=== PATIENT | female | born 1985 | race Caucasian/White ===

== ENCOUNTER 2025-05-13 02:51 | Day surgery (SDC) | payer OTHER, SELFPAY ==
[2025-04-28 12:09] VITALS: BMI 22.5
--- NOTE | 2025-04-28 12:18 | PC.NURSE ---
[facility] has started construction of its new state of the art ER which will open Spring 2026. With this, we anticipate parking may be a challenge for some our surgical patients and families. Parking spaces are limited but are available for all Surgical, obstetrics, and ER patients sharing this lot. If you arrive and find you are having a hard time finding a parking space, please note that we understand the challenges, please drive around the hospital and park near Hospital Entrance 1. When you enter this entrance, you can ask a volunteer to direct or take you back to the surgical waiting area to check in. We appreciate everyone?s understanding of these expected challenges while we build for your future. Report to the Outpatient Waiting Room, entrance under the green pavilion located off [address], at time _0600_ on date _[phone]_. Planned Procedure Time: _0730_.? Time changes happen often and if your time is changed the preop area will call you the afternoon before. - You and your visitor will be asked to self-screen and do not enter if you have any COVID symptoms. Please call surgeon if you need to reschedule. - A mask is optional within the hospital at this time. Patients may have clear liquids (water, carbonated beverages, clear teas, apple juice) until 3 hours prior to surgery with a maximum of 20 ounces. - No food from midnight until time of surgery and no smoking, or chewing tobacco (or any form of nicotine). No chewing gum, candy or mints. Take only the following medications with a SIP of water on the morning of surgery: ___Flonase____ DO NOT STOP ANY OF YOUR OTHER PRESCRIPTION MEDICATIONS PRIOR TO SURGERY EXCEPT THE FOLLOWING Hold all vitamins and supplements for 3 days per anesthesiologist. Medications to discontinue per physician Date to take last deny___[phone]___ Please no make-up, nail rwandan, hairspray, perfume, deodorant, or body powder the day of surgery.? No jewelry (including any body piercings) or valuables the day of surgery, leave them at home.? Please take a shower or bath the night before, or the morning of, surgery with an antibacterial soap.? Wear comfortable, loose fitting clothing.? - Jewelry must be removed prior to entering the operating room.? Rings and piercings that are not removed may be cut off. - The hospital will not accept responsibility for valuables.? - Please leave all valuables, including medications, at home the day of surgery. If you are going home after surgery, a licensed charter coach driver must drive you home.? - NO public transportation without another adult if you receive anesthesia. - We recommend that an adult stay with you for 24 hours following discharge. - We also recommend that you do not drive, make important decision, drink alcoholic beverages, or take any drugs that were not prescribed by your health care provider for at least 24 hours after your discharge time. Follow any additional instructions given to you from your surgeon. Telephone instructions given to __Gloria__and asked if any additional questions and then verbalized understanding. Patient advised to call surgeon office or pre surgery nurse liaison [phone] if any additional questions.
[2025-05-13] VITALS (11 sets, daily range): BP systolic 100–113; BP diastolic 60–79; PULSE 68–84; RESP 12–20; TEMP 36.5–37.1; O2SAT 98–100; BMI 22.8
--- OUTSIDE RECORDS SUMMARY | 2025-05-13 02:54 | XMS_ITS | Clinical Summary ---
Author Organization [facility] [employer] Address [facility] [place] [address] Care Team Providers Care Telegraph Editor Name Role Phone Tegan Engle MD Unavailable Marsha Padron MD Unavailable Pcp, Joanne Boateng - Primary Care Provider U mcailable Source Comments [facility] [employer],non-owned Affiliates and Associated Physician Practices is amultiple site organization consisting of ambulatory clinics and hospital sitesin [place], [place], [place] and [place]. This disclosure is being madepursuant to the Care Everywhere program and may not contain all information available regarding this patient. Last updated 18.[facility] [employer] Allergies Active Allergy Reactions Criticality Noted Date Comments Diphenhydramine Rash,Urticaria Medium 09/01/2023 Medications * Be aware that medications may not be up to date on this document. Alwaysverify current medications with the patient. 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 Multiple benign nevi 10/20/2018 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 Encounters Date Type Department Care Team Description 02/23/2025 Results Follow-Up [facility] - [facility] [address] [place] [address], [address] [place] [phone] Tegan Engle MD 02/17/2025 9:15 AM CDT Office Visit [facility] - CAPTAIN ASSISTANT [address] [place] [address], [address] [place] [address] Tegan Engle MD Well woman exam with routine gynecological exam (Primary Dx) 02/17/2025 Travel from Last 3 Months Immunizations Immunization Administration Dates Next Due Covid Moderna primary monova lent 12+ yr 0.5mL 05/25/2021,11/05/2020,10/08/2020 INFLUENZA VACCINE 03/14/2021 Family History Medical History Relation Name Comments Cancer - Colon Father Hypertension Mother Leukemia Paternal Grandfather Relation Name Status Comments Brother Alive Father Alive Mother Alive Paternal Grandfather Social History Tobacco Use Types Packs/Day Years Used Date Smoking Tobacco: Never Smokeless Tobacco: Never Tobacco Cessation:Counseling Given: No Alcohol Use Standard Drinks/Week Comments Yes 0 (1 standard drink = 0.6 oz pur e alcohol) social PHQ-2 Answer Date Recorded Patient Health Questionnaire-2 Score 0 02/12/2025 Comments No Sex and Gender Information Value Date Recorded Sex Assigned at Not on file Legal Sex Female 1:35 PM CDT Gender Identity Not on file Sexual Orientation Not on file Last Filed Vital Signs Vital Sign Reading Time Taken Comments Blood Pressure 104/64 02/17/2025 9:30 AM CDT Pulse 70 03/12/2022 1:46 PM CDT Temperature 36.9 C (98.5 F) 03/12/2022 1:46 PM CDT Respiratory Rate 18 03/12/2022 1:46 PM CDT Oxygen Saturation 98% 03/12/2022 1:46 PM CDT Inhaled Oxygen Concentration - - Weight 53.3 kg (117 lb 9.6 oz) 02/17/2025 9:30 A M CDT Height 152.4 cm (5') 02/17/2025 9:30 AM CDT Body Mass Index 22.97 02/17/2025 9:30 AM CDT Plan of Treatment Health Maintenance Due Date Last Done Comments HIV SCREENING 2001 HEPATITIS C SCREENING 09/11/2004 DTAP/TDAP/TD VACCINES (1 - Tdap) 2005 HEPATITIS B VACCINE (1 of 3 - 19+ 3-dose series) 2005 HPV VACCINE (1 - 3-dose SCDM series) 2013 COVID-19 VACCINE ( season) 2025 05/25/2021, 11/05/2020, 10/08/2020 INFLUENZA VACCINE (#1) 2025 03/14/2021 PAP with HPV 02/17/2030 02/17/2025, 02/2023, 05/04/2020, Additional history exists ZOSTER VACCINE (1 of 2) 2036 DEPRESSION SCREENING Completed 02/17/2025, 07/25/2023, 07/08/2022, Additional history exists HIB VACCINE Aged Out No longer eligi ble based on patient's age to complete this topic MENINGOCOCCAL (Group B) VACCINE SHARED DECISION-MAKING Aged Out No longer eligible based on patient's age to complete this topic MENINGOCOCCAL GROUPS A/C/Y/W VACCINE Aged Out No longer eligible based on patient's age to complete this topic PNEUMOCOCCAL VACCINE Aged Out No long er eligible based on patient's age to complete this topic Procedures Procedure Name Priority Date/Time Associated Diagnosis Comments PAP IG LB +HPV APTIMA REFLEX 16,18/45 FOR HR POS Routine 02/17/2025 9:39 AM CDT Well woman exam with routine gynecological exam from Last 3 Months Results * PAP IG LB +HPV APTIMA REFLEX 16,18/45 FOR HR POS (02/17/2025 9:39 AM CDT) Diagnosis Comment [facility] ACCOUNT BILL Comment:NEGATIVE FOR INTRAEP ITHELIAL LESION OR MALIGNANCY. Specimen Adequacy Comment [facility] ACCOUNT BILL Comment: Satisfactory for evaluation. Endocervical and/or squamous metaplastic cells (endocervical component) are present. Clinician Provided ICD10 Comment [facility] ACCOUNT BILL Comment:Z01.419 Performed by Comment [facility] ACCOUNT BILL Comment:Seda cortez, Assistant To The Vice President (ASCP) Comment . [facility] ACCOUNT BILL Note Comment [facility] ACCOUNT BILL Comment: The Pap smear is a screening test designed to aid in the detection of premalignant and malignant conditions of the uterine cervix. It is not a diagnostic procedure and should not be used as the sole means of detecting cervical cancer. Both false-positive and false-negative reports do occur. IGLBP CPT Code Automation Comment [facility] ACCOUNT BILL Comment: This liquid based ThinPrep(R) pap test was screened with the use of an image guided system. Human papillomavirus Aptima Negative Negative [facility] ACCOUNT BILL Comment: This nucleic acid amplification test detects fourteen high-risk HPV types (16,18,31,33,35,39,45,51,52,56,58,59,66,68) without differentiation. ENTIRE ENDOCERVIX / Unknown 02/17/2025 9:39 AM CDT 02/17/2025 Comment:Endocrvx Release to p Narrative [facility] ACCOUNT BILL - 02/21/2025 11:10 AM CDT Performed at: 01 - [facility] [id number] Production Cell Leader: Hailey Acevedo MD, Phone: [phone] Performed at: 02 - [facility] [id number] Production Cell Leader: Hailey Acevedo MD, Phone: [phone] Specimen Comment: [id number] Specimen Comment: No. of containers..01 ThinPrep Vial us Tegan Engle MD LAB - PATHOLOGY/CYTOLOGY ORDERAB LES Final Result [facility] ACCOUNT BILL [address] [place] [address] from Last 3 Months Insurance [facility] Care Teams Telegraph Editor Relationship Specialty Start Date End Date PcpJoanne PCP - General 07/29/23 Tegan Engle MD Obstetrics and Gynecology 12/11/21 Marsha Padron MD [address] [place] [address] Dermatology 12/11/21
--- OUTSIDE RECORDS SUMMARY | 2025-05-13 02:54 | XMS_ITS | Data Portability ---
Author Organization [facility]_ Address [address] [place] [address] Assessment No assessment recorded. Plan of Treatment Reminders Order Date Submit Date Provider Last Modified By Organization Details Last Modified Time Details Appointments None recorded. Lab urinalysi s, complete 2018 [facility], [address], [place], [address], 9 10:23:03 Referral None recorded. Procedures None recorded. Surgeries None recorded. Imaging None recorded. Medication Orders Saline Mist 0.65 % nasal spray aerosol 2018 019 INTERFACE [employer] #[id number], [address] [place], [place], [id number], 9 12:17:17 cetirizin e 10 mg tablet 2018 019 [facility]FACE [id number], [address] [place], [place], [id number], 9 12:17:31 Mucinex 600 mg tablet, extended release 2018 019 INTERFACE [employer] #[id number], [address] [place], [id number], 9 12:17:18 Augmentin 875 mg-125 mg tablet 2018 019 INTERFACE [facility] #[id number], [address] [place], [place], [id number], 9 12:17:19 Macrobid 100 mg capsule 2018 [facility] , [address], [facility] [address] [facility] [address], [place], [place], [id number], 9 11:57:23 Diflucan 150 mg tablet 2018 019 [facility] , [address], [facility] [address], [place], [place], [id number], 9 11:57:14 Patient TargetsNo targets recorded. Patient Instructions Encounter Date Encounter Id Patient Instructions Last Modified By Organization Details Last Modified Time 09/09/2018 [id number] Discussed taking Macrobif ro 3 days only and evaluate symptoms. To see MANAGER ONCOLOGY for evaluationof vaginal discharge and possible endometriosis Not available 09/09/2018 18:49:08 09/25/2018 [id number] Acute Sinusitis: Care Instructions Not available 09/25/2018 12:17:07 saline nasal washes: care instructions Not available 09/25/2018 12:17:07 sore throat: car e instructions Not available 09/25/2018 12:17:07 Reason for Referral None Reported. Results Created Date Observation Date Name Description Value Unit Range Abnormal Flag Note LastModifiedBy Organization Detail LastModifiedTime 09/10/1909/10/2018 urina lysis , compl ete color YELW yellow normal Not Available [facility] [address], [place], [address], 09/10/2018 10:10:37 09/10/1909/10/2018 urina lysis , compl ete appearance SLCLD clear normal Not Available [facility] [address], [place], [address], 09/10/2018 10:10:37 09/10/1909/10/2018 urina lysis , compl ete sp gravity 1.025 1.005- 1.030 normal Not Available [facility] [address], [place], [address], 09/10/2018 10:10:37 09/10/19 19 09/10/2018 urina lysis , compl ete pH 6.0 5.2-7. 6 normal Not Available [facility] [address] , [place], [address], 09/10/2018 10:10:37 09/10/1909/10/2018 urina lysis , compl ete protein NEG neg normal Not Available [facility] [address] , [place], [address], 09/10/2018 10:10:37 09/10/1909/10/2018 urina lysis , compl ete glucose NEG neg normal Not Available [facility] [address] , [place], [address], 09/10/2018 10:10:37 09/10/1909/10/2018 urina lysis , compl ete ketone NEG neg normal Not Available [facility] [address] , [place], [address], 09/10/2018 10:10:37 09/10/1909/10/2018 urina lysis , compl ete bilirub NEG neg normal Not Available [facility] [address] , [place], [address], 09/10/2018 10:10:37 09/10/1909/10/2018 urina lysis , compl ete blood TRACE neg abnormal Not Available [facility] [address] , [place], [address], 09/10/2018 10:10:37 09/10/1909/10/2018 urina lysis , compl ete urobil 0.2 nl normal Not Available [facility] [address] , [place], [address], 09/10/2018 10:10:37 09/10/1909/10/2018 urina lysis , compl ete nitrite NEG neg normal Not Available [facility] [address] , [place], [address], 09/10/2018 10:10:37 09/10/1909/10/2018 urina lysis , compl ete leuk NEG neg normal Not Available [facility] [address] , [place], [address], 09/10/2018 10:10:37 09/10/1909/10/2018 urina lysis , compl ete WBC 0-5 0-5 normal Not Available [facility] [address] , [place], [address], 09/10/2018 10:10:37 09/10/1909/10/2018 urina lysis , compl ete RBC NEG 0-5 normal Not Available [facility] [address] , [place], [address], 09/10/2018 10:10:37 09/10/1909/10/2018 urina lysis , compl ete epith 0-5 0-10 normal Not Available [facility] [address] , [place], [address], 09/10/2018 10:10:37 09/10/1909/10/2018 urina lysis , compl ete bacteria RARE none normal Not Available [facility] [address] , [place], [address], 09/10/2018 10:10:37 09/10/1909/10/2018 urina lysis , compl ete color Yellow normal Not Available [facility] [address] , [place], [address], 09/10/2018 10:10:37 09/10/1909/10/2018 urina lysis , compl ete appearance Slight ly C normal Not Available [facility] [address] , [place], [address], 09/10/2018 10:10:37 Result Notes None recorded. Problems No Known Problems Procedures Surgical History Date Name Laterality Status Provider Name and Address Organization Details Recorded Time 9 Cerumen Removal completed Damir Bolanos [address] [facility] [address], [place], [address], [facility] 09/25/2018 20:34:44 Imaging Results None recorded. Procedure Notes None recorded. Medical Equipment None Reported. Allergies Allergen ID Allergen Name Allergen Category Reaction Reaction Severity Criticality Documentation Date Start Date Code Code System Note Provider Name and Address Organization Details Recorded Time 7765 Benadryl medicatio n Not available Not available Not available 09/09/2018 93288 7 RxNorm Ramya Li [facility] 9 17:57:27 Medications Name Sig Start Date Stop Date Status Note LastModified by Organization Details LastModified Time glycopyrrola te 1 mg tablet 09/25 completed Not Available Not Available Not Available Augmentin 875 mg-125 mg tablet Take 1 tablet every 12 hours by oral route for 10 days. 2018 active Not Available Not Available Not Avai lable Saline Mist 0.65 % nasal spray aerosol Take 2 sprays 3 times a day by nasal route as needed for 10 days. 2018 active Not Available Not Available Not Avai lable cetirizine 10 mg tablet Take 1 tablet every day by oral route. 2018 active Not Available Not Available Not Avai lable Diflucan 150 mg tablet Take 1 tablet every day by oral route for 1 day. 09/25 completed Not Available Not Available Not Available Macrobid 100 mg capsule Take 1 capsule every 12 hours by oral route for 10 days. 09/25 completed Not Available Not Available Not Available glycopyrrola te 2 mg tablet 09/25 completed Not Available Not Available Not Available diazepam 5 mg tablet active Not Available Not Available No t Available Mucinex 600 mg tablet, extended release Take 1 tablet twice a day by oral route for 10 days. 2018 active Not Available Not Available Not Avai lable MoviPrep 100 gram-7.5 gram-2.691 gram oral powder packet 09/25 completed Not Available Not Available Not Available Altavera (28) 0.15 mg-0.03 mg tablet active Not Available Not Available Not Available Vitals Date Recorded Heart rate Respiratory rate Body temperature Body weight Oxygen saturation Oxygen saturation in Arterial blood by Pulse oximetry Systolic And Diastolic Provider Name and Address Organization Details Last Updated DateTime 9 79 /min 18 /min 98.3 [degF] 04898.2 3 g 99 % 99 % 116/64 mm[Hg] Ramya [facility] 9 17:57:18 Date Recorded Body weight Body height Body mass index (BMI) Body temperature Respiratory rate Heart rate Oxygen saturation Oxygen saturation in Arterial blood by Pulse oximetry Systolic And Diastolic Provider Name and Address Organization Details Last Updated DateTime 9 25307.5 6 g 152.4 cm 22.5 kg/m2 97.8 [degF] 18 /min 99 /min 98 % 98 % 114/70 mm[Hg] Kay Edouard [facility] 9 12:02:35 Social History Question Answer Notes LastModified by [employer] Details LastModified Time Tobacco Smoking Status Never Smoker Ramay stratton [facility] 09/09/2018 18:00:00 Which Illicit Or Recreational Drugs Have You Used? Never Information not available 09/09/2018 What Was The Date Of Your Most Recent Tobacco Screening? 09/25/2018 Information not available 01/20/2019 Sex: Unknown Functional Status Question Answer Note LastModified by [employer] Details LastModified Time What is your level of alcohol consumption? Occasional Information not available 09/09/2018 Mental Status None recorded. Family History Relationship Description Onset Age of this Age Resolved Age Notes LastModified by Organization Details LastModified Time Maternal Grandfather Diabetes mellitus [email or web address] Not available 2018 17:59:45 Medical History Condition Response Coronary Artery Disease N Other N Gout N Kidney Stones N Blood Diseases N Hyperthyroidism N Breast Cancer N Blood Transfusion N Depression N Hypothyroidism N Lung Disease N COPD N Developmental or Behavioral Disorders N Defects or Inherited Disease N Breast Problem N Difficulty Swallowing N Anesthesia Complications N Anxiety Disorder N Meniere's disease N Muscle, Joint, or Bone Problems N Obesity N Vision or Eye Problems N Arthritis N Infertility N Polyps N Mental Disorder N Cancer N Stroke N Varicosities N Endometriosis N Bladder or Kidney Problems N High Cholesterol N Liver Disease N Fibromyalgia N Headaches N Kidney Disease N Allergies/Hayfever N Heart Problems N Ear or Hearing Problems N Hospitalizations N Thyroid Problems N GI Problems N ADD/ADHD N Skin Problems N Eating Disorder N Anemia N MRSA exposure N Constipation N Mental Illness N Ovarian Cancer N Diabetes N Bedwetting N Seizures/Epilepsy N Tuberculosis N AIDS/HIV N Congestive Heart Failure (CHF) N Eczema N Diverticulitis N Abuse/Domestic Violence N Asthma N Reflux/GERD N Hepatitis N Heart Disease N Pulmonary Embolism N Pre-Eclampsia N Hypertension N Chronic Ear Infections N Osteoporosis N Chicken Pox N Autism Spectrum Disorder (ASD) N Thrombophilias N Gynecological HistoryNo gynecological history recorded. Obstetrics History GPAL:G 0 P 0 0 0 0 Past Encounters Encounter ID Performer Location Encounter Start Date Encounter Closed Date Diagnosis/Indication Diagnosis SNOMED-CT Code Diagnosis ICD10 Code Diagnosis IMO Codes Diagnosis Note [id number] Damir Bolanos [facility] [address] [place] [address] 09/09/2018 17:31:32 12/05/2018 15:22:23 Dysuria 94838936 R30.0 [id number] Damir [facility] OFF[facility] [address] , [address] [place] [address] 09/25/2018 11:40:59 09/26/2018 12:04:19 Acute sinusitis 84632610 J01.90 Acute pharyngitis 940930 003 J02.9 Impacted cerumen 6006501 6 H61.21 Health Concerns Section Related Observation LastModified by Organization Detai ls LastModified Time None Recorded Concern Status LastModified by Organization Details LastModified Time None Recorded Advance Directives Directive None Recorded Payers Insurance Date Sequence Insurance Name Policy Number Policy Carvalho Covered Member ID Carvalho Member ID Guarantor Name 09/25/2018 1 [facility] Gloria Pabon [id number] Gloria Pabon Notes Date Note Type Note Provider Name and Address Organization Details Recorded Time 09/09/2018 text/html Lower Urinary Tr act Symptoms (LUTS)Reported by Patient Pt presents to urgent care with c/o a possible UTI since yesterday. Pt stated she is having some burning sensations, discharge and frequent urination. Damir Bolanos [address], [place], [address], [facility] 12/04/2018 23:57:50 09/25/2018 text/html FeverReported by Patient Pt [facility] for congestion, sore throat, cough, fever. pt reports that when she is in the showing the steam loosens up the mucous in her chest and she can cough some out and it is green in color. pt reports that she has had these symptoms since friday. pt reports that she has been fatigued and her ears feels like she has fluid draining from her ears into her throat, pt reports her main complaint is is the cough and the sore throat. pt reports she has been taking claritin and it is not helping much. pt took otc sudafed this morning and reports it didnt help at all. Damir Bolanos [address], [place], [address], [facility] 09/25/2018 20:36:44 OBGyn Episode No OBEpisode recorded.
--- OUTSIDE RECORDS SUMMARY | 2025-05-13 02:54 | XMS_ITS | Clinical Summary ---
Author Organization [facility] Address [facility] [place] [address] Care Team Providers Care Door Hanger Name Role Phone Esperanza Busch Primary Care Provider + [phone] Allergies Active Allergy Reactions Criticality Noted Date Comments Diphenhydramine Hives,Contact Dermatitis 2024 Medications glycopyrrolate (ROBINUL) 1 MG tablet Take 1 tablet (1 mg total) by mouth 2 (two) times a day. 2 MG IN THE MORNING AND 1MG AT NIGHT Active cetirizine (ZYRTEC) 10 MG tablet Take 2 tablets (20 mg total) by mouth daily. 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 Not on file Not on file Not on file Last Filed Vital Signs Vital Sign Reading Time Taken Comments Blood Pressure 118/64 10/28/2024 10:15 AM CDT Pulse 78 10/28/2024 10:15 AM CDT Temperature 36.4 C (97.6 F) 10/28/2024 9:42 AM CDT Respiratory Rate 38 10/28/2024 10:15 AM CDT Oxygen Saturation 100% 10/28/2024 10:15 AM CDT Inhaled Oxygen Concentration - - Weight 52.2 kg (115 lb) 10/15/2024 12:23 PM CDT Height 152.4 cm (5') 10/15/2024 12:23 PM CDT Body Mass Index 22.46 10/15/2024 12:23 PM CDT Plan of Treatment Health Maintenance Due Date Last Done Comments Annual Physical 1989 Hepatitis C 2004 DTaP, Tdap and Td Vaccines (1 - Tdap) 2005 Hepatitis B Vaccines (1 of 3 - 19+ 3-dose series) 2005 HPV Vaccines (1 - 3-dose SCDM series) 2013 COVID-19 Vaccine ( season) 2025 04/08/2024, 05/25/2021, 11/05/2020, Additional history exists Influenza Adult (#1) 2025 03/14/2021 Cervical Cancer Screening Pap Smear (Age 30 to 64) Every 3 Years 07/08/2025 07/08/2022 Cervical Cancer Screening Pap with HPV Testing (Age 30 to 64) Every 5 Years 07/08/2027 07/08/2022 Cervical Cancer Screening with HPV 07/08/2027 Hepatitis A Vaccines Aged Out No long er eligible based on patient's age to complete this topic Meningococcal B Vaccine Aged Out No l onger eligible based on patient's age to complete this topic Meningococcal Vaccine Aged Out No zakiya jimbo eligible based on patient's age to complete this topic Pneumococcal Vaccine: Pediatrics (0 to 5 Years) and At-Risk Patients (6 to 49 Years) Aged Out No longer eligible based on patient's age to complete this topic RSV Immunizations Under 20 Months Aged Out No longer eligible based on patient's age to complete this topic Insurance [facility] Care Teams Door Hanger Relationship Specialty Start Date End Date Esperanza Busch DO [address] [place] [phone] PCP - General INTERNAL MEDICINE 10/27/24
--- NOTE | 2025-05-13 06:23 | WPDANESEPPF ---
Anes - Initial Pre Proc Eval Procedure: Operation Date: 05/13/25 07:30 Proposed Procedures p Bilateral Lower Lid Blepharoplasty with Fat Grafting - Zac Quiles MD s Excision Lesion Right Shoulder - Zac Quiles MD Date/Time: 05/13/25 06:23 Surgeon: Zac Quiles MD Pre Op Diagnosis: Lower lid dermatochalisis, hx of benign lesion Patient Data Age: 39 Gender: F Height: 1.52 m Weight: 52.3 kg Allergies Allergy/AdvReac Type Severity Reaction Status Date / Time diphenhydramine Allergy Severe Rash Verified 04/28/25 12:04 Home Medications ?Medication ?Instructions ?Recorded ?Confirmed ?Type narena root extract 500 mg 500 mg PO DAILY 04/28/25 04/28/25 History capsule cetirizine 10 mg tablet (All Day 20 mg PO DAILY 04/28/25 04/28/25 History Allergy (cetirizine)) fluticasone propionate 50 1 spray intranasal DAILY 04/28/25 04/28/25 History mcg/actuation nasal spray,suspension glycopyrrolate 1 mg tablet 2 mg PO BID 04/28/25 04/28/25 History lutein 10 mg tablet 10 mg PO DAILY 04/28/25 04/28/25 History omega 7-usv-bjw-fish oil 1,200 mg 1 cap PO DAILY 04/28/25 04/28/25 History (144 mg-216 mg) capsule (Fish Oil) vitamin D3 125 mcg (5,000 1 cap PO DAILY 04/28/25 04/28/25 History unit)-vitamin K2 180 mcg capsule (K2-D3 Max) Laboratory Tests 05/13/25 06:14 Cotinine Pending Patient hx anesthesia problems: none Family hx anesthesia problems: none Results Review: All pre-operative results and documents have been reviewed as part of the pre-operative evaluation. [facility] Social History Social History Smoking status: Never smoker Alcohol intake: current Substance use: never Living arrangements: with family Spiritual care concerns: No Anes - Eval Final PreProcedure Day of Procedure 05/13/25 06:23 Patient weight: normal Heart: regular rate and rhythm Lungs: clear to auscultation Airway: Mallampati scale class II Neurological: alert and oriented Last oral intake: >/= 8 hours ASA classification: II Emergent: no Anesthetic plan: proceed Anesthesia type and monitoring: general ETT and standard monitoring Results Review: All pre-operative results and documents have been reviewed as part of the pre-operative evaluation. Informed Consent: The patient's anesthetic plan and its attendant risks and benefits were discussed with the patient/family/POA. Questions were solicited and answers provided to the satisfaction of the patient/family/POA.
[2025-05-13] MEDS: LACTATED RINGERS 1,000 ML 30 ML IV CONT ×2 (06:50→09:53)
[2025-05-13] MEDS: TRANEXAMIC ACID 1,000MG/ISO100 1,000 MG/100 ML BAG 200 MG IVPB (06:50)
[2025-05-13] MEDS: SCOPOLAMINE 1 MG PATCH 1 PATCH TRANSDERM (07:12)
[2025-05-13 07:13] LABS: BEDSIDEPREGUCG Negative (Negative)
--- NOTE | 2025-05-13 07:13 | P.OP_ITS ---
Procedure Note - Detailed Date of Procedure 05/13/25 Pre-op Diagnosis Lower lid dermatochalisis, hx of benign lesion Post-op Diagnosis Same Procedure Performed 1. Bilateral lower eyelid blepharoplasty with fat grafting 2. Excision right shoulder lesion Surgeon Zac Quiles MD Anesthesia General Findings Fat grafting 4cc per lid (8cc total volume) Description of Procedure Preoperatively risks, benefits, alternatives were discussed in extensive detail. I want them to be very realistic about the risks involved as well as expectations. Discussed what we can and cannot improved. Limitations of this procedure. Alternative procedure as well as adjuvant procedures. This was a lengthy open-ended conversation discussing realistic expectations of outcome. Answered all of their questions to their satisfaction. Consent obtained. Taken to the operating room placed supine on the operating room table. Anesthesia provided by anesthesiology. Prepped and draped in a standard sterile fashion. 1% lidocaine and 0.25% Marcaine with epinephrine was used anesthetize locally with low volume of local to protect from distortion of structures. Eyes were irrigated with BSS. Tetracaine eyedrops placed. Corneal protectors also placed. Fat grafting donor site was also prepped and draped in a standard sterile fashion. Stab incision was made and tumescent was utilized for hemostasis. Suction lipectomy was completed with hand lipo and placed for gravity separation. Right shoulder had been prepped and draped in a standard sterile fashion. 1% lidocaine and 0.25% marcaine with epi was used to anesthetize locally. A 15 blade was used to excise the lesion which was sent to pathology (she understands at her expense). This was closed with 3-0 Monocryl and 4-0 Nylon. Measured 1.2cm. Needle-tip cautery was used to incise just inferior to the tarsus and a transconjunctival lower lid blepharoplasty technique. The conjunctiva was retracted with a 5-0 nylon. I elevated in a preseptal fashion down to the level of the rim. At this point I entered the nasal, middle, and lateral compartments and removed only what was clearly excess adiposity. I verified strict hemostasis throughout. I verified that the inferior oblique was protected during this procedure. With gentle pressure on the globe I verified the contour the lower lids. Both lids proceeded in the same manner. Retraction suture and corneal protectors were removed. Copious irrigated again with BSS solution. Only the central fat from the syringes were used. These were passed through Xendo microfat grafting connectors t0 2.4 then 1.2 microns. 18 gauge needle utilized to make stab incisions. Fat infiltrated on tulip fat grafting cannulas in multiple plans and passes based on preoperative planning and intraoperative observation. Patient was woken taken the PACU without difficulty. All instrument sponge counts were correct at the end the case. Estimated Blood Loss 5 Drains No Packing No Pathology Yes (Right shoulder) Complications No immediate complications Condition Stable Disposition PACU
--- NOTE | 2025-05-13 07:13 | WPDHPUPDATE1 ---
History and Physical Update Update Date/Time: 05/13/25 07:13 History and Physical has been reviewed, including an updated exam of the patient. There are NO changes in the patient's condition. Risks, benefits, and alternatives have been discussed and questions answered. Patient agrees to proceed with procedure.
[2025-05-13] MEDS: TETRACAINE HCL 0.5% OPHTH SOLN 4 ML BTL 1 DROP EACH EYE (07:30)
[2025-05-13] MEDS: LACTATED RINGERS IRRIG 1,000 ML, LIDOCAINE 1% LOCAL INJ 50 ML, EPINEPHrine HCL INJ 1 MG... INFILTRATE (07:30)
[2025-05-13] MEDS: LIDO 1%/EPINEPHRINE 1:100,000 50 ML VIAL (07:30)
[2025-05-13] MEDS: ceFAZolin 2 GM in SODIUM CHLORIDE 0.9% IV 50 ML 100 ML IVPB (07:30)
[2025-05-13] MEDS: BALANCED SALT SOLN OPHTH IRRIG 30 ML BTL 15 ML EACH EYE (07:46)
--- NOTE | 2025-05-13 08:47 | S_PTH ---
PATIENT: Gloria Pabon LOC: [facility] U#:[id number] AGE/SX: 39/F ROOM: RE05/13/[address]: Zac Quiles MD : 1985 BED: DIS: 05/13/2025 SPEC #: [id number] RECD: 05/13/25 10:56 STATUS: ANNIE RERenetta #: [id number] DEEPIKA: 05/13/25 08:[address]: Zac Qiules DEPT: [facility] Surgical RECD BY: Mini Peralta ENTERED: 05/13/25 10:56 SP TYPE: Surgical OTHR DR: UNKNOWN,DOCTOR Tissues: A - LESION Procedures: Gross and Microscopic Level 4
[2025-05-13] MEDS: NEOMYCIN/POLYMYXIN/DEXAMETH OP OINT 3.5 GM TUBE 1 APPLIC EACH EYE (09:41)
[2025-05-13] MEDS: oxyCODONE HCL (*CRX) 5 MG TAB IR PO (11:39)
== END 2025-05-13 12:20 | disposition home or self-care (01) ==
PROVIDERS: Visit Provider Surgery Plastic and Reconstructive Surgery
PROC: (CPT 15820; principal; 2025-05-13 07:30)
PROC: (CPT 15820; 2025-05-13 07:30)
DX: Z41.1 Encounter for cosmetic surgery (principal); H02.835 Dermatochalasis of left lower eyelid; H02.832 Dermatochalasis of right lower eyelid; D23.61 Other benign neoplasm of skin of right upper limb, including shoulder; I10 Essential (primary) hypertension; Z87.891 Personal history of nicotine dependence; Z80.0 Family history of malignant neoplasm of digestive organs
CPT/HCPCS: 15820; 15773; 11402; 80307; 88305; J0690; A9270; J0166; J1100; J2003; J2004; J2250; J2405; J2704; J3010; J3290; J7120